=== PATIENT | female | born 1965 | race Caucasian/White ===

== ENCOUNTER → 2016-10-04 | Outpatient (CLI) | payer OTHER ==
[~2016-10-04] MED LIST: CYCL5TAB PO; DICL75 PO; LORTA5 PO; Z.0.NO CURRENT MEDS
[2016-10-04 13:17] LABS: ANION GAP 8 MEQ/L (5-15); AST (GOT) 23 U/L (15-37); BICARBONATE 26.1 MEQ/L (21.0-32.0); BLOOD UREA NITROGEN 9 MG/DL (7-18); CHLORIDE 106 MEQ/L (98-107); GLOMERULAR FILTRATION RATE 86 ML/MIN (>89); GLUCOSE,FASTING 89 MG/DL (74-99); SODIUM (NA) 140 MEQ/L (136-145)
[2016-10-04 13:20] LABS: ALKALINE PHOSPHATASE 74 U/L (45-117); ALT (GPT) 25 U/L (10-53); HDL CHOLESTEROL 42.3 MG/DL (40.0-60.0); LDL CHOLESTEROL 137 MG/DL (0-99); TOTAL BILIRUBIN ADULT 0.5 MG/DL (0.2-1.0)
== END ==
LOC: CLAB 12:17
PROVIDERS: ATTEND Family Medicine
DX: E78.2 Mixed hyperlipidemia (principal)
CPT/HCPCS: 36415; 80053; 80061

== ENCOUNTER → 2016-11-01 | Outpatient (CLI) | payer OTHER ==
[2016-11-01 07:11] LABS: MEAN CELL VOLUME 91.4 FL (80.0-100.0); MEAN CORPUSCULAR HEMOGLOBIN 31.6 PG (27.0-34.0); MEAN CORPUSCULAR HGB CONC 34.5 % (32.0-36.0); PLATELET COUNT 277 TH/MM3 (150-450); RED BLOOD COUNT 4.27 MIL/MM3 (4.00-5.30); REVIEW FLAG FINAL; WHITE BLOOD COUNT 11.6 TH/MM3 (4.0-11.0)
[2016-11-01 07:39] LABS: ALT (GPT) 30 U/L (10-53); ANION GAP 8 MEQ/L (5-15); AST (GOT) 24 U/L (15-37); BICARBONATE 28.5 MEQ/L (21.0-32.0); BLOOD UREA NITROGEN 9 MG/DL (7-18); CHLORIDE 103 MEQ/L (98-107); GLOMERULAR FILTRATION RATE 95 ML/MIN (>89); GLUCOSE,FASTING 94 MG/DL (74-99); POTASSIUM 3.9 MEQ/L (3.5-5.1); SODIUM (NA) 139 MEQ/L (136-145)
[2016-11-01 07:41] LABS: ALKALINE PHOSPHATASE 85 U/L (45-117); TOTAL BILIRUBIN ADULT 0.5 MG/DL (0.2-1.0)
[2016-11-05 20:06] LABS: MITOGEN MINUS NIL RESULT >10.00 IU/mL (()); NIL RESULT 0.03 IU/mL (()); QUANTIFERON TB GOLD RESULT Negative (Negative)
== END ==
LOC: CLAB 06:38
DX: L40.0 Psoriasis vulgaris (principal); Z79.899 Other long term (current) drug therapy
CPT/HCPCS: 36415; 80053; 80074; 85027; 86480

== ENCOUNTER → 2016-12-11 | Outpatient (CLI) | payer OTHER ==
[~2016-12-11] VITALS: Ht 160 cm; Wt 78.0 kg
[~2016-12-11] MED LIST changes: +CHLORHEXIDINE GLUCONATE 2 % 1 PACK (2 CLOTHS) TOPICAL PRN; +CLOB0.0513; +INSULIN HUMAN REGULAR 1,000 UNITS/10 ML VIAL SQ PRN; +LACTATED RINGER'S 1000 ML IV PRN; +METOPROLOL TARTRATE 25 MG TAB PO PRN; +POVIDONE IODINE 5% (ANTISEPSIS KIT) 4 APPLICATIONS EACH NARE PRN; +PROPOFOL 200 MG/20 ML AMP IV ONE; +SODIUM CHLORID 0.9% 500 ML IV PRN
[2016-12-11 11:13] VITALS: BP 144/92; PULSE 93; RESP 18; TEMP 98.2; O2SAT 96
--- NOTE | 2016-12-11 12:32 | GIPROC ---
[facility] [address] [facility]. [facility], [id number] COLONOSCOPY PROCEDURE REPORT EXAM DATE: 12/11/2016 PATIENT NAME: Bernie Leroy MR #: [id number] BIRTHDATE: 1965 ENDOSCOPIST: Yehuda Saini MD ORDER #: [id number] THEATER USHER: Kumar Hebert and Radha Tyson STATUS: outpatient INDICATIONS: The patient is a 51 yr old female here for a colonoscopy due to screening; average risk. PROCEDURE PERFORMED: Colonoscopy with biopsy MEDICATIONS: Per Anesthesia. PREP QUALITY: excellent ESTIMATED BLOOD LOSS: None CONSENT: The patient understands the risks and benefits of the procedure and understands that these risks include, but are not limited to: sedation, allergic reaction, infection, perforation and/or bleeding. Alternative means of evaluation and treatment include, among others: physical exam, x-rays, and/or surgical intervention. The patient elects to proceed with this endoscopic procedure. medical equipment was checked for proper function. Hand hygiene and appropriate measures for infection prevention was taken. After the risks, benefits and alternatives of the procedure were thoroughly explained, Informed consent was verified, confirmed and timeout was successfully executed by the treatment team. A digital exam was performed The Pentax [id number] endoscope was introduced through the anus and advanced to the cecum, which was identified by both the appendix and ileocecal valve. The instrument was then slowly withdrawn as the colon was fully examined. A single, diminutive hepatic flexure polyp was removed with biopsy forceps technique. Retroflexion was performed The scope was then completely withdrawn from the patient and the procedure terminated. PROCEDURE WITHDRAWAL TIME:9minutes ADVERSE EVENTS: There were no complications. IMPRESSIONS: Single hepatic flexure polyp; removed with biopsy forceps. RECOMMENDATIONS: Resume prior diet/medications. RECALL: Repeat colonoscopy in 5 0r 10 years, depending on polyp histology. Yehuda Saini MD eSigned: Yehuda Saini MD 12/11/2016 12:31 PM cc: Robert Gomez M.D.
[2016-12-11 12:36] VITALS: TEMP 98
[2016-12-11 12:47] VITALS: BP 111/75; PULSE 74; RESP 16; O2SAT 96
--- NOTE | 2016-12-11 16:16 | EKG ---
Date Performed: 12/11/2016 Time Performed: 11:22:26 PTAGE: 51 years EKG: Sinus rhythm WITH OCCASIONAL VENTRICULAR PREMATURE COMPLEXES NONSPECIFIC T-WAVE ABNORMALITY BORDERLINE ECG NO PREVIOUS TRACING DOCTOR: Channing Joseph Interpretating Date/Time 12/11/2016 16:15:56
== END ==
LOC: HEND 10:20
DX: Z12.11 Encounter for screening for malignant neoplasm of colon (principal); D12.3 Benign neoplasm of transverse colon; R94.31 Abnormal electrocardiogram [ECG] [EKG]
CPT/HCPCS: 88305; 93005

== ENCOUNTER → 2017-04-03 | Outpatient (CLI) | payer OTHER ==
[~2017-04-03] MED LIST changes: -CHLORHEXIDINE GLUCONATE 2 % 1 PACK (2 CLOTHS) TOPICAL PRN; -CYCL5TAB PO; -DICL75 PO; -INSULIN HUMAN REGULAR 1,000 UNITS/10 ML VIAL SQ PRN; -LACTATED RINGER'S 1000 ML IV PRN; -LORTA5 PO; -METOPROLOL TARTRATE 25 MG TAB PO PRN; -POVIDONE IODINE 5% (ANTISEPSIS KIT) 4 APPLICATIONS EACH NARE PRN; -PROPOFOL 200 MG/20 ML AMP IV ONE; -SODIUM CHLORID 0.9% 500 ML IV PRN; -Z.0.NO CURRENT MEDS
[2017-04-03 08:02] LABS: HEMATOCRIT 40.9 % (35.0-46.0); HEMOGLOBIN 14.1 GM/DL (11.6-15.3); MEAN CELL VOLUME 93.3 FL (80.0-100.0); MEAN CORPUSCULAR HEMOGLOBIN 32.1 PG (27.0-34.0); MEAN CORPUSCULAR HGB CONC 34.5 % (32.0-36.0); MEAN PLATELET VOLUME 8.8 FL (7.0-11.0); PLATELET COUNT 303 TH/MM3 (150-450); RED BLOOD COUNT 4.39 MIL/MM3 (4.00-5.30); RED CELL DISTRIBUTION WIDTH 12.2 % (11.6-17.2)
[2017-04-03 08:37] LABS: ALBUMIN 4.2 GM/DL (3.4-5.0); AST (GOT) 25 U/L (15-37); BICARBONATE 25.6 MEQ/L (21.0-32.0); BLOOD UREA NITROGEN 12 MG/DL (7-18); CALCIUM 8.8 MG/DL (8.5-10.1); CHLORIDE 102 MEQ/L (98-107); CHOLESTEROL 259 MG/DL (120-200); CREATININE 0.61 MG/DL (0.50-1.00); GLOMERULAR FILTRATION RATE 104 ML/MIN (>89); GLUCOSE,FASTING 91 MG/DL (74-99); SODIUM (NA) 137 MEQ/L (136-145)
[2017-04-03 08:49] LABS: ALKALINE PHOSPHATASE 76 U/L (45-117); ALT (GPT) 27 U/L (10-53); CHOLESTEROL/ HDL RATIO 5.22 RATIO; HDL CHOLESTEROL 49.6 MG/DL (40.0-60.0); LDL CHOLESTEROL 162 MG/DL (0-99); TOTAL BILIRUBIN ADULT 0.6 MG/DL (0.2-1.0); TRIGLYCERIDES 238 MG/DL (42-150)
== END ==
LOC: CLAB 07:19
PROVIDERS: ATTEND Family Medicine
DX: E78.2 Mixed hyperlipidemia (principal)
CPT/HCPCS: 36415; 80053; 80061; 84443; 85027

== ENCOUNTER → 2017-08-04 | Outpatient (CLI) | payer OTHER ==
[2017-08-04 07:11] LABS: AUTOMATED NEUTROPHIL # 6.3 TH/MM3 (1.8-7.7); BASOPHIL % 0.5 % (0.0-2.0); EOSINOPHIL # 0.2 TH/MM3 (0-0.4); EOSINOPHIL % 1.7 % (0.0-4.0); HEMOGLOBIN 13.4 GM/DL (11.6-15.3); LYMPHOCYTE # 1.9 TH/MM3 (1.0-4.8); MEAN CELL VOLUME 91.1 FL (80.0-100.0); MEAN CORPUSCULAR HGB CONC 35.2 % (32.0-36.0); MEAN PLATELET VOLUME 9.1 FL (7.0-11.0); MONO % 9.6 % (0.0-8.0); MONOCYTE # 0.9 TH/MM3 (0-0.9); NEUT % 68.2 % (16.0-70.0); PLATELET COUNT 272 TH/MM3 (150-450); RED BLOOD COUNT 4.18 MIL/MM3 (4.00-5.30); RED CELL DISTRIBUTION WIDTH 12.1 % (11.6-17.2); WHITE BLOOD COUNT 9.3 TH/MM3 (4.0-11.0)
[2017-08-04 07:33] LABS: ALBUMIN 3.7 GM/DL (3.4-5.0); ALT (GPT) 22 U/L (10-53); AST (GOT) 16 U/L (15-37); BICARBONATE 27.9 MEQ/L (21.0-32.0); BLOOD UREA NITROGEN 14 MG/DL (7-18); CALCIUM 8.7 MG/DL (8.5-10.1); CHLORIDE 106 MEQ/L (98-107); CREATININE 0.63 MG/DL (0.50-1.00); GLOMERULAR FILTRATION RATE 100 ML/MIN (>89); GLUCOSE,FASTING 99 MG/DL (74-99); SODIUM (NA) 140 MEQ/L (136-145)
[2017-08-04 07:35] LABS: ALKALINE PHOSPHATASE 65 U/L (45-117); TOTAL BILIRUBIN ADULT 0.3 MG/DL (0.2-1.0); TOTAL PROTEIN 7.3 GM/DL (6.4-8.2)
[2017-08-04 10:41] LABS: HEPATITIS A AB IGM NEGATIVE (NEGATIVE); HEPATITIS B CORE AB IGM NEGATIVE (NEGATIVE); HEPATITIS B SURFACE ANTIGEN NEGATIVE (NEGATIVE); HEPATITIS C AB IgG NEGATIVE (NEGATIVE)
== END ==
LOC: CLAB 08-01 06:43
DX: L40.0 Psoriasis vulgaris (principal); Z79.899 Other long term (current) drug therapy
CPT/HCPCS: 36415; 80053; 80074; 85025; 86480

== ENCOUNTER 2017-12-21 11:21 | Inpatient (IN) ==
[2017-12-21] MEDS ORDERED: Morphine Inj 4 MG/ML Vial IV.PUSH ONE ×2 (12:07→19:24)
[2017-12-21] MEDS ORDERED: Diphtheria/Tetanus/Pertussis Vaccine Inj 0.5 ML Syringe IM ONE (12:07)
[2017-12-21] MEDS ORDERED: ceFAZolin 2 GM Premix Inj 2 GM/50 ML PIGGYBACK IV.SIG ONE (12:07)
[2017-12-21] MEDS ORDERED: Sod Chloride 0.9% Inj 1,000 ML IV.CONT SCH (12:15)
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
[2017-12-21] MEDS ORDERED: HYDROmorphone PF Inj 1 MG/ML Ampul IV.PUSH ONE (13:07)
[2017-12-21] MEDS ORDERED: HYDROmorphone PF Inj 2 MG/ML Vial IV.PUSH ONE (13:30)
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
[2017-12-21] MEDS ORDERED: Lidocaine 1%/Epinephrine 1:100,000 Inj 50 ML Vial ONE (15:53)
[2017-12-21] MEDS ORDERED: Midazolam Inj 5 MG/ML 1 ML Vial IV.PUSH ONE (15:54)
[2017-12-21] MEDS ORDERED: fentaNYL Citrate Inj 100 MCG/2 ML Ampul IV.PUSH ONE (15:54)
[2017-12-21] MEDS ORDERED: Lidocaine 1% Inj 50 ML Vial INFILTRATN ONE (15:54)
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
[2017-12-21] MEDS ORDERED: Morphine Inj 4 MG/ML Vial IV.PUSH PRN (20:17)
[2017-12-21] MEDS ORDERED: Morphine Inj 30 MG/30 ML PCA.VIAL PCA PRN (21:59)
[2017-12-21] MEDS ORDERED: Naloxone Inj 0.4 MG/ML Vial IV.PUSH PRN (21:59)
[2017-12-21] MEDS: Pantoprazole Inj 40 MG Vial IV.PUSH SCH (22:44)
[2017-12-22] MEDS ORDERED: Chlorhexidine Gluconate 2% 1 Pack (2 Cloths) TOPICAL PRN (04:00)
[2017-12-22] MEDS ORDERED: Chlorhexidine Gluconate 2% 1 Pack (2 Cloths) TOPICAL SCH ×2 (04:00)
[2017-12-22] MEDS ORDERED: Metoprolol Tartrate 25 MG Tablet PO SCH (04:00)
[2017-12-22] MEDS ORDERED: Sodium Chlor 0.9% Inj 500 ML IV.SIG SCH (04:00)
[2017-12-22] MEDS: Sod Chloride 0.9% Inj 1,000 ML IV.CONT SCH ×3 (04:45→19:25)
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
[2017-12-22] MEDS: Docusate Sodium 100 MG Capsule PO SCH ×2 (09:12→22:37)
[2017-12-22] MEDS: Enoxaparin Inj 40 MG/0.4 ML Syringe SQ SCH (10:43)
[2017-12-22 10:50] LABS: Baso % (Auto) 0.3 % (0.0-2.0); Eos # (Auto) 0.1 th/mm3 (0.0-0.4); Eos % (Auto) 0.5 % (0.0-4.0); Hemoglobin 12.1 gm/dL (11.6-15.3); Lymph # (Auto) 1.4 th/mm3 (1.0-4.8); Lymph % (Auto) 10.7 % (9.0-44.0); Mean Corpuscular HGB Conc 34.5 % (32.0-36.0); Mean Corpuscular Hemoglobin 32.1 pg (27.0-34.0); Mean Corpuscular Volume 93.3 fL (80.0-100.0); Mean Platelet Volume 9.1 fL (7.0-11.0); Mono # (Auto) 1.3 th/mm3 (0.0-0.9); Mono % (Auto) 10.4 % (0.0-8.0); Neut # (Auto) 9.9 th/mm3 (1.8-7.7); Neut % (Auto) 78.1 % (16.0-70.0); Platelet Count 304 th/mm3 (150-450); Red Blood Count 3.75 mil/mm3 (4.00-5.30); Red Cell Distribution Width 12.2 % (11.6-17.2); White Blood Count 12.7 th/mm3 (4.0-11.0)
[2017-12-22 11:00] LABS: Anion Gap 9 meq/L (5-15); Blood Urea Nitrogen 7 mg/dL (7-18); Calcium 8.3 mg/dL (8.5-10.1); Carbon Dioxide 25.3 meq/L (21.0-32.0); Chloride 104 meq/L (98-107); Glomerular Filtration Rate Greater Than 89 mL/min (>89); Glucose,Random 118 mg/dL (74-106); Potassium 3.7 meq/L (3.5-5.1); Sodium 138 meq/L (136-145)
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
[2017-12-22] MEDS: Ketorolac Inj 30 MG/ML (IVP) Vial IV.PUSH PRN (22:37)
[2017-12-22] MEDS: Pantoprazole Inj 40 MG Vial IV.PUSH SCH (22:47)
[2017-12-23 04:10] LABS: Baso % (Auto) 0.3 % (0.0-2.0); Eos # (Auto) 0.2 th/mm3 (0.0-0.4); Eos % (Auto) 2.4 % (0.0-4.0); Lymph # (Auto) 1.5 th/mm3 (1.0-4.8); Lymph % (Auto) 15.4 % (9.0-44.0); Mean Corpuscular HGB Conc 34.4 % (32.0-36.0); Mean Corpuscular Volume 92.9 fL (80.0-100.0); Mono # (Auto) 0.9 th/mm3 (0.0-0.9); Mono % (Auto) 9.7 % (0.0-8.0); Neut % (Auto) 72.2 % (16.0-70.0); Platelet Count 267 th/mm3 (150-450); Red Blood Count 3.77 mil/mm3 (4.00-5.30); Red Cell Distribution Width 12.2 % (11.6-17.2); White Blood Count 9.7 th/mm3 (4.0-11.0)
[2017-12-23 04:37] LABS: Anion Gap 8 meq/L (5-15); Blood Urea Nitrogen 8 mg/dL (7-18); Calcium 8.3 mg/dL (8.5-10.1); Carbon Dioxide 26.7 meq/L (21.0-32.0); Chloride 105 meq/L (98-107); Glomerular Filtration Rate Greater Than 89 mL/min (>89); Glucose,Random 99 mg/dL (74-106); Potassium 3.5 meq/L (3.5-5.1); Sodium 140 meq/L (136-145)
[2017-12-23] MEDS: Ketorolac Inj 30 MG/ML (IVP) Vial IV.PUSH PRN (06:24)
--- NOTE | 2017-12-23 06:37 | P.PNOP ---
Subjective Interval history: s/p right patella fracture Doing well. Pain improving. Resting comfortably. Physical Exam Vital signs: Vital Signs 12/22/17 08:00 12/22/17 10:19 12/22/17 12:00 Temperature 98 F Pulse Rate 90 95 H Respiratory Rate 16 18 16 Blood Pressure 147/86 H 132/84 Pulse Oximetry 95 96 12/22/17 16:00 12/22/17 18:02 12/22/17 20:00 Temperature 98.2 F 97.9 F Pulse Rate 88 93 H Respiratory Rate 16 16 Blood Pressure 121/66 111/65 Pulse Oximetry 95 95 92 L 12/23/17 00:00 12/23/17 02:30 12/23/17 04:00 Temperature 98.5 F 97.5 F L Pulse Rate 98 H 85 Respiratory Rate 16 15 16 Blood Pressure 113/64 105/66 Pulse Oximetry 91 L 94 L Intake & Output 12/22/17 12/22/17 12/23/17 06:59 18:59 06:59 Intake Total 1999 120 / 120 Output Total 1025 / 1025 Balance 975 / 975 120 / 120 Weight 80.4 kg Intake: IV 1999 NS + KCl 20 mEq Inj 1,000 ML @ 1000 / 1000 84 mls/hr IV.CONT .[id number] DINO Rx#:[id number] NS Inj 1,000 ML @ 100 mls/hr IV 1000 / 1000 .CONT .Q10H DINO Rx#:[id number] Oral 120 / 120 Output: Urine 1025 / 1025 Other: # Voids 1 Date of Last Bowel Movement 12/21/17 12/21/17 # Bowel Movements 0 Narrative: RLE: 2+ swelling of knee. +CKS. nvi Results - Labs CBC & Chem 7: 12/23/17 03:56 12/23/17 03:56 Laboratory Results - last 24 hr 12/22/17 12/22/17 12/22/17 09:08 10:05 10:05 WBC 12.7 H RBC 3.75 L Hgb 12.1 Hct 35.0 MCV 93.3 MCH 32.1 MCHC 34.5 RDW 12.2 Plt Count 304 MPV 9.1 Neut % (Auto) 78.1 H Lymph % (Auto) 10.7 [place] % (Auto) 10.4 H Eos % (Auto) 0.5 Baso % (Auto) 0.3 Neut # (Auto) 9.9 H Lymph # (Auto) 1.4 [place] # (Auto) 1.3 H Eos # (Auto) 0.1 Baso # (Auto) 0.0 WBC Differential . Differential Comment Auto diff final Sodium 138 Potassium 3.7 Chloride 104 Carbon Dioxide 25.3 Anion Gap 9 BUN 7 Creatinine 0.59 Estimated GFR Greater than 89 Random Glucose 118 H Calcium 8.3 L Nasal Screen MRSA (PCR) Not detected 12/23/17 12/23/17 03:56 03:56 WBC 9.7 RBC 3.77 L Hgb 12.0 Hct 35.0 MCV 92.9 MCH 32.0 MCHC 34.4 RDW 12.2 Plt Count 267 MPV 9.0 Neut % (Auto) 72.2 H Lymph % (Auto) 15.4 [place] % (Auto) 9.7 H Eos % (Auto) 2.4 Baso % (Auto) 0.3 Neut # (Auto) 7.0 Lymph # (Auto) 1.5 [place] # (Auto) 0.9 Eos # (Auto) 0.2 Baso # (Auto) 0.0 WBC Differential . Differential Comment Auto diff final Sodium 140 Potassium 3.5 Chloride 105 Carbon Dioxide 26.7 Anion Gap 8 BUN 8 Creatinine 0.67 Estimated GFR Greater than 89 Random Glucose 99 Calcium 8.3 L Nasal Screen MRSA (PCR) - Imaging Impressions Knee X-Ray 12/22/17 00:00 CONCLUSION: Negative examination Assessment and Plan - Assessment and Plan 1) right comminuted patella fracture 2) left knee pain -Maintain knee brace and nonweightbearing status on the right leg -Continue to elevate and ice. -X-rays of the left knee are negative for fracture. -N.p.o. after midnight -Signed consent -Plan for surgery tomorrow Dr. Colby for ORIF of right patella
[2017-12-23] MEDS ORDERED: Morphine Inj 4 MG/ML Vial IV.PUSH PRN (07:11)
[2017-12-23] MEDS: Enoxaparin Inj 40 MG/0.4 ML Syringe SQ SCH (09:14)
[2017-12-23] MEDS: Famotidine 20 MG Tablet PO SCH ×2 (09:14→21:48)
[2017-12-23] MEDS: Senna/Docusate Sodium 8.6/50 MG Tablet PO SCH ×2 (09:14→21:48)
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
--- NOTE | 2017-12-24 06:35 | P.PNOP ---
Subjective Interval history: s/p right patella fx doing well. no changes Physical Exam Vital signs: Vital Signs 12/23/17 08:00 12/23/17 11:14 12/23/17 12:00 Temperature 97.9 F 97.9 F Pulse Rate 83 87 Respiratory Rate 17 18 Blood Pressure 109/67 117/75 Pulse Oximetry 94 L 95 97 12/23/17 16:00 12/23/17 17:47 12/23/17 20:00 Temperature 98.4 F 98.3 F Pulse Rate 91 H 96 H Respiratory Rate 18 16 Blood Pressure 109/61 115/69 Pulse Oximetry 94 L 97 93 L 12/24/17 00:00 12/24/17 01:14 Temperature 97.6 F Pulse Rate 91 H Respiratory Rate 17 Blood Pressure 109/62 Pulse Oximetry 94 L Intake & Output 12/23/17 12/23/17 12/24/17 06:59 18:59 06:59 Intake Total 120 / 120 900 / 900 Output Total 450 / 450 Balance 120 / 120 450 / 450 Weight 80.4 kg 80.3 kg Intake: Oral 120 / 120 900 / 900 Output: Urine 450 / 450 Other: # Voids 1 Date of Last Bowel Movement 12/21/17 12/21/17 # Bowel Movements 0 Weight On Admission 80.4 kg Narrative: RLE: 1+ swelling of knee. nvi. +knee brace Results - Labs CBC & Chem 7: 12/23/17 03:56 12/23/17 03:56 Assessment and Plan - Assessment and Plan 1) right comminuted patella fracture 2) left knee pain -Maintain knee brace and nonweightbearing status on the right leg -[facility] Prescription Drug Monitoring Database has been queried and verified prior to prescribing the controlled substance. Acute pain exception. This patient has normal, predicted, physiological, and time limited response to an adverse mechanical stimulus associated with surgery, trauma, or acute illness as described in my notes. There is a lack of alternative treatment options other than to include the prescribed narcotic treatment for this condition.
[2017-12-24] MEDS ORDERED: Post-op Orders (for Pharmacy) OTHER STA (08:38)
--- NOTE | 2017-12-24 08:50 | P.OP ---
- Preoperative Diagnosis (1) Fracture of patella, right, closed Date of procedure: 12/24/17 Procedure: Open reduction internal fixation right patella Anesthesia: GETA Surgeon: Robinson Vaca MD Color Blender: ELLIOTT Mohamud PA-C The surgical procedure was assisted by my physician cashier assistant. My P.A. presence was necessary throughout this case for the manipulation and positioning of the surgical extremity. My P.A. was assisting me throughout the duration of this procedure. The skill set of a physician cashier assistant was medically necessary to complete this procedure. During the surgical case the surgical nurse was working at the back table and the physician cashier assistant was directly assisting me. Operation and Findings: Implants used: Synthes 4.0 cannulated screws Plan of activity: Partial weightbearing 50 pounds with a knee immobilizer Details of procedure: Bernie had an injury resulting in displaced comminuted right patella fracture. Informed consent was confirmed preoperatively and informed consent was obtained. I had a detailed discussion with the patient regarding the risks and benefits of surgery. Patient was brought to the operating room and placed on the OR table. IV sedation and GETA were administered by anesthesiologist and IV antibiotics were given prior to incision. A timeout procedure was performed. The operative leg was prepped with alcohol followed by Hibiclens and draped in the usual sterile fashion. The procedure began with a 5-inch incision over the anterior knee. Subcutaneous tissue was dissected with Bovie. At this point the fracture site was visualized. Fracture was now cleaned with curettes. At this point attention was turned to reduction. The inferior pole of the patella was reduced to the superior pole of the patella. There was significant comminution of the fracture fragments. There was depression of the central articular surface. The articular surface was elevated. Fractures were manipulated to achieve optimal alignment. The lateral fragment was reduced next. Fracture tenaculums were used to compress fracture fragments. Multiplanar fluoroscopy confirmed excellent alignment of fracture. 3 guide pins for the Synthes 4.0 cannulated screws were now placed from inferior to superior. Fluoroscopy was used to confirm appropriate guidepin placement. Screw lengths were measured. Cannulated drill was now placed over the guide pins. Appropriate length screws were now placed, good compression was applied. An 18 gauge wire was now passed through the cannulated screws in a [id number] fashion. A tension band type construct was now created. The wires were tensioned appropriately. An additional screw was placed from lateral to medial. Guidepin was placed. Screw length was measured. Good compression was obtained. An additional wire was passed through the screw and tensioned appropriately for additional stability. Fluoroscopy confirmed well-placed hardware with well-aligned fracture. The retinaculum was now closed with #5 FiberWire, subcutaneous tissue was closed with 3-0 Vicryl and skin was closed with julian. Sterile dressings were applied. The patient was transferred to recovery in stable condition. She was placed into a knee immobilizer.
[2017-12-24] MEDS ORDERED: HYDROmorphone PF Inj 2 MG/ML Vial ONE (08:59)
[2017-12-24] MEDS ORDERED: Dimethicone/Oxybenzone-Padimate Lip Balm 4.25 GM Tube TOPICAL ONE (09:03)
--- NOTE | 2017-12-24 09:12 | XR ---
EXAM DATE: 12/24/2017 8:45 AM EDT AGE/SEX: 52 years / Female INDICATIONS: ORIF of right patellar fractures.. CLINICAL DATA: This is the patient's initial encounter. Patient reports that signs and symptoms have been present for 1 day and indicates a pain score of Nonresponsive. MEDICAL/SURGICAL HISTORY: None. None. COMPARISON: No prior exams available for comparison. FINDINGS: AP and lateral views of the right knee were obtained and demonstrate postoperative changes with multi ple screws and cerclage wires transfixing multiple patellar fractures. The fracture fragments are in near-anatomic alignment. The distal femur and proximal tibia are intact and in normal alignment. CONCLUSION: Status post open rigid internal fixation of right patellar fractures. Electronically signed by: Erich Proctor MD 12/24/2017 9:10 AM EDT
[2017-12-24] MEDS ORDERED: Ketorolac Inj 30 MG/ML (IVP) Vial IV.PUSH SCH (09:15)
[2017-12-24] MEDS ORDERED: Bupivacaine PF 0.5% Inj 30 ML Vial ONE (09:19)
[2017-12-24] MEDS ORDERED: Bupivacaine Liposomal PF 1.3% Inj 20 ML Vial ONE (09:19)
[2017-12-24] MEDS ORDERED: Dexamethasone PF Inj 10 MG/ML Vial ONE (09:20)
[2017-12-24] MEDS ORDERED: fentaNYL Citrate Inj 100 MCG/2 ML Ampul ONE (09:31)
[2017-12-24] MEDS: Famotidine 20 MG Tablet PO SCH ×2 (09:44→21:00)
[2017-12-24] MEDS: Calcium/Vitamin D 250/125 MG Tablet PO SCH ×3 (09:44→18:10)
[2017-12-24] MEDS: Senna/Docusate Sodium 8.6/50 MG Tablet PO SCH ×2 (09:45→21:00)
[2017-12-24] MEDS: Enoxaparin Inj 40 MG/0.4 ML Syringe SQ SCH (10:08)
[2017-12-24] MEDS ORDERED: Lidocaine PF 1% Inj 5 ML Syringe INFILTRATN ONE (12:00)
[2017-12-24] MEDS ORDERED: Morphine Inj 30 MG/30 ML PCA.VIAL PCA PRN (13:11)
[2017-12-24] MEDS ORDERED: Naloxone Inj 0.4 MG/ML Vial IV.PUSH PRN (13:11)
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
[2017-12-24] MEDS ORDERED: ceFAZolin 2 GM Premix Inj 2 GM/50 ML PIGGYBACK IV.SIG SCH (15:00)
[2017-12-24] MEDS: Vancomycin Inj 1,000 MG in Sodium Chlor 0.9% Inj 250 ML IV.SIG SCH (18:09)
[2017-12-24] MEDS: Ketorolac Inj 30 MG/ML (IVP) Vial IV.PUSH PRN (18:10)
--- NOTE | 2017-12-24 18:38 | ECG ---
Date Performed: 12/24/2017 Time Performed: 05:48:00 PTAGE: 52 years EKG: Sinus rhythm Inferior T wave changes are nonspecific Borderline ECG Since the PREVIOUS TRACING , no significant change noted DOCTOR: Channing Joseph Interpretating Date/Time 12/24/2017 18:36:10
[2017-12-25] MEDS: ceFAZolin 2 GM Premix Inj 2 GM/50 ML PIGGYBACK IV.SIG SCH ×2 (00:07→09:45)
[2017-12-25] MEDS: Vancomycin Inj 1,000 MG in Sodium Chlor 0.9% Inj 250 ML IV.SIG SCH (06:32)
--- NOTE | 2017-12-25 07:01 | P.PNOP ---
Subjective Interval history: POD 1 s/p ORIF right comminuted patella fx Doing well. Reports minimal pain. States that the nerve block is still working well. States she was out of bed to the chair yesterday. Physical Exam Vital signs: Vital Signs 12/24/17 09:00 12/24/17 09:15 12/24/17 09:30 Temperature 98.2 F Pulse Rate 104 H 108 H 100 H Respiratory Rate 16 16 16 Blood Pressure 164/87 H 152/88 H 134/79 Pulse Oximetry 92 L 96 97 12/24/17 09:45 12/24/17 10:00 12/24/17 12:00 Temperature 98.1 F Pulse Rate 100 H 100 H 92 H Respiratory Rate 16 16 18 Blood Pressure 129/77 124/76 110/58 L Pulse Oximetry 97 95 92 L 12/24/17 16:00 12/24/17 20:00 12/25/17 00:00 Temperature 98.1 F 98.7 F 98.0 F Pulse Rate 92 H 86 76 Respiratory Rate 18 17 16 Blood Pressure 117/66 120/69 124/75 Pulse Oximetry 95 94 L 95 12/25/17 02:47 12/25/17 04:00 Temperature 98.2 F Pulse Rate 74 Respiratory Rate 17 17 Blood Pressure 152/86 H Pulse Oximetry 96 Intake & Output 12/24/17 12/24/17 12/25/17 06:59 18:59 06:59 Intake Total 1600 / 1600 700 / 700 Output Total 50 / 50 Balance 1550 / 1550 700 / 700 Weight 80.3 kg 80.8 kg Intake: IV 250 / 250 Vancomycin Inj 1,000 MG In NS 250 / 250 Inj 250 ML @ 200 mls/hr IV.SIG Q12H DINO Rx#:[id number] Oral 1000 / 1000 450 / 450 Anesthesia Amount 600 / 600 Output: Estimated Blood Loss 50 / 50 Other: # Voids 2 2 Date of Last Bowel Movement 12/21/17 12/21/17 12/21/17 Weight On Admission 80.4 kg Narrative: RLE: Dressings clean and dry. Intact. Knee brace in place. Full sensation distally with strong dorsiflexion. Results - Labs CBC & Chem 7: 12/23/17 03:56 12/23/17 03:56 - Imaging Impressions Knee X-Ray 12/24/17 00:00 CONCLUSION: Status post open rigid internal fixation of right patellar fractures. Assessment and Plan - Assessment and Plan 1) right comminuted patella fracture s/p ORIF - POD 1 2) left knee pain -PArtial weight bearing up to 50lbs with knee brace on -no quad sets or leg lift -no ROM -knee brace at all times -daily dressing changes with xeroform/primapore -pain medication on chart -advised to take OTC aspirin 81mg BID at home -ortho clear for DC with HHC -f/u with [facility] or [facility] in 2 weeks [facility] Prescription Drug Monitoring Database has been queried and verified prior to prescribing the controlled substance. Acute pain exception. This patient has normal, predicted, physiological, and time limited response to an adverse mechanical stimulus associated with surgery, trauma, or acute illness as described in my notes. There is a lack of alternative treatment options other than to include the prescribed narcotic treatment for this condition.
--- NOTE | 2017-12-25 07:03 | P.DCO ---
- Physical Therapy Physical Therapy: Gait training, Safety evaluation Knee: Knee fracture, Protocol: Right, Non weight bearing (Right knee: partial wt up to 50lbs with knee brace on) Canvas Knee Splint: At all times Right Lower Extremity Weight Bearing: No strengthening, No quad sets Right Lower Extremity Range of Motion: No ROM - Nursing Dressing changes: Daily dressing change, Xeroform, Coverderm/Primapore - Certification Need for Home Health services: I have seen patient Bernie Leroy on 12/25/17. My clinical findings support the need for the requested home health care services because: Need for Home Health Services: Limited mobility due to disease progression Homebound Certification: I certify that my clinical findings support that this patient is homebound because: Homebound Certification: Post-op weakness
[2017-12-25] MEDS: Enoxaparin Inj 40 MG/0.4 ML Syringe SQ SCH (09:46)
[2017-12-25] MEDS: Calcium/Vitamin D 250/125 MG Tablet PO SCH ×2 (09:46→16:10)
[2017-12-25] MEDS: Famotidine 20 MG Tablet PO SCH (09:46)
[2017-12-25] MEDS: Senna/Docusate Sodium 8.6/50 MG Tablet PO SCH (09:46)
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
== END 2017-12-25 16:38 | disposition home health service (06) ==
LOC: NEPD 11:21 → NEDA 19:45 → N06 21:31
PROVIDERS: ADMIT Surgery; ATTEND Surgery
PROC: ORIFPAT (2017-12-24 07:17)
DX: M25.532 Pain in left wrist; S31.114A Laceration without foreign body of abdominal wall, left lower quadrant without penetration into peritoneal cavity, initial encounter; S71.111A Laceration without foreign body, right thigh, initial encounter; Y92.410 Unspecified street and highway as the place of occurrence of the external cause; S82.041A Displaced comminuted fracture of right patella, initial encounter for closed fracture; S51.812A Laceration without foreign body of left forearm, initial encounter; S81.011A Laceration without foreign body, right knee, initial encounter; E78.00 Pure hypercholesterolemia, unspecified; F17.210 Nicotine dependence, cigarettes, uncomplicated; V43.53XA Car driver injured in collision with pick-up truck in traffic accident, initial encounter